=== PATIENT | male | born 1960 | race Caucasian/White ===

== ENCOUNTER 2018-08-16 13:33 | Inpatient (IN) | payer OTHER ==
[2018-08-16] MEDS ORDERED: FENTAnyl 50 MCG/ML VIAL IV ×3 (16:00→20:30)
[2018-08-16] MEDS ORDERED: ALBUTEROL 0.083% (NEB) 2.5 MG/3 ML AMP HHN (16:00)
[2018-08-16] MEDS ORDERED: DIPHENHYDRAMINE 50 MG INJ IV ×3 (16:00→20:30)
[2018-08-16] MEDS ORDERED: METOCLOPRAMIDE 10 MG INJ IV ×2 (16:00→20:30)
[2018-08-16] MEDS ORDERED: ONDANSETRON 4 MG INJ IV ×2 (16:00→20:30)
[2018-08-16] MEDS ORDERED: HYDROmorphONE 1 MG/5 ML IV SYRINGE IV ×3 (16:00)
[2018-08-16] MEDS ORDERED: MEPERIDINE 25 MG INJ IV ×2 (16:00→20:30)
[2018-08-16] MEDS ORDERED: MIDAZOLAM 1 MG/ML 2 ML INJ (17:08)
[2018-08-16] MEDS: BUPIVACAINE 0.25% (MPF) 30 ML INJ (17:33)
[2018-08-16] MEDS: POLYMYXIN/BACITRACIN 1L IRRIG (17:33)
[2018-08-16] MEDS: LIDOCAINE 1% (STERILE-PAK) 30 ML INJ (18:05)
[2018-08-16] MEDS: BACITRACIN 50000 UNITS INJ (18:05)
[2018-08-16] MEDS: POLYMYXIN B 500000 UNIT INJ (18:05)
[2018-08-16] MEDS ORDERED: CEFAZOLIN 1 GM INJ (19:57)
[2018-08-16] MEDS ORDERED: LIDOCAINE 2% (SDV) 5 ML INJ (19:57)
[2018-08-16] MEDS ORDERED: ETOMIDATE 20 MG INJ (19:57)
[2018-08-16] MEDS ORDERED: ROPIVACAINE 0.5 % 30 ML VIAL (19:58)
[2018-08-16] MEDS ORDERED: ONDANSETRON 4 MG INJ (20:14)
[2018-08-16] MEDS ORDERED: METOCLOPRAMIDE 10 MG INJ (20:14)
[2018-08-16] MEDS ORDERED: DIPHENHYDRAMINE 50 MG INJ (20:27)
[2018-08-16] MEDS ORDERED: morphine (1 MG/ML) 10ML SYRINGE IV ×2 (20:30)
[2018-08-16] MEDS ORDERED: hydrALAzine 20 MG INJ IV (20:30)
[2018-08-16] MEDS ORDERED: NACL 0.9% 3 ML SYG IV (20:30)
[2018-08-16] MEDS ORDERED: ACETAMINOPHEN 325 MG TAB PO (20:30)
[2018-08-16] MEDS ORDERED: MIDAZOLAM 1 MG/ML 2 ML INJ IV (20:30)
[2018-08-16] MEDS: ONDANSETRON 4 MG INJ IV (20:38)
[2018-08-16] MEDS ORDERED: GLUCOSE GEL 15 GRAM TUBE PO ×2 (21:00)
[2018-08-16] MEDS ORDERED: GLUCAGON 1 MG INJ IM (21:00)
[2018-08-16] MEDS: INSULIN ASPART [NOVOLOG] 3 ML PEN SC (21:00)
[2018-08-16] MEDS ORDERED: DEXTROSE 50% 50 ML SYRINGE IV ×2 (21:00)
[2018-08-16] MEDS: FAMOTIDINE 20 MG TAB PO (21:00)
[2018-08-16] MEDS: CEFAZOLIN 2 GM/50 ML (PMX) 50 ML IVPB (21:00)
[2018-08-16] MEDS ORDERED: GLUCOSE GEL 15 GRAM TUBE BUCCAL (21:00)
[2018-08-16] MEDS ORDERED: HEPARIN 5,000 UNIT/0.5 ML VIAL (22:58)
[2018-08-16 22:59] LABS: ADD MAN DIFF? NO
[2018-08-16] MEDS: HEPARIN 5,000 UNIT/1 ML VIAL SC (22:59)
[2018-08-16 23:01] LABS: BASOPHILS % 0.4 % (0.0-2.0); EOSINOPHILS # 0.2 10^3/ul (0.0-0.5); EOSINOPHILS % 1.6 % (0.0-7.0); HEMATOCRIT 38.7 % (42.0-52.0); HEMOGLOBIN 12.7 g/dl (14.0-18.0); LYMPHOCYTES # 1.7 10^3/ul (0.8-2.9); LYMPHOCYTES % 15.4 % (15.0-51.0); MEAN CORPUSCULAR HEMOGLOBIN 28.9 pg (29.0-33.0); MEAN CORPUSCULAR HGB CONC 32.8 g/dl (32.0-37.0); MEAN CORPUSCULAR VOLUME 88.2 fl (82.0-101.0); MEAN PLATELET VOLUME 10.7 fl (7.4-10.4); MONOCYTE # 0.5 10^3/ul (0.3-0.9); MONOCYTES % 4.9 % (0.0-11.0); NEUTROPHIL # 8.4 10^3/ul (1.6-7.5); NEUTROPHILS % 77.2 % (39.0-77.0); PLATELET COUNT 137 10^3/UL (140-415); POSITIVE DIFF @See below; RED BLOOD COUNT 4.39 10^6/ul (4.70-6.10)
[2018-08-16 23:01] LABS: WHITE BLOOD COUNT 10.8 10^3/ul (4.8-10.8)
[2018-08-16 23:17] LABS: ALANINE AMINOTRANSFERASE 25 IU/L (13-69); ALBUMIN 3.9 g/dl (3.3-4.9); ALKALINE PHOSPHATASE 70 IU/L (42-121); ANION GAP 9 (5-13); ASPARTATE AMINO TRANSFERASE 17 IU/L (15-46); BILIRUBIN,INDIRECT 0.5 mg/dl (0-1.1); BILIRUBIN,TOTAL 0.5 mg/dl (0.2-1.3); BLOOD UREA NITROGEN 10 mg/dl (7-20); CALCIUM 8.9 mg/dl (8.4-10.2); CARBON DIOXIDE 27 mmol/L (21-31); CHLORIDE 103 mmol/L (97-110); CREATININE 0.72 mg/dl (0.61-1.24); Estimated GFR > 60 mL/min (>60); GLUCOSE 160 mg/dl (70-220); POTASSIUM 4.2 mmol/L (3.5-5.1); SODIUM 139 mmol/L (135-144); TOTAL PROTEIN 6.5 g/dl (6.1-8.1)
[2018-08-17] MEDS: HYDROmorphONE 0.5 MG/0.5 ML SYG IV (00:46)
[2018-08-17] MEDS: ACCU-CHEK XX (02:00)
[2018-08-17] MEDS: HYDROmorphONE 1 MG/ML SYG IV ×2 (02:04→06:05)
[2018-08-17] MEDS ORDERED: HEPARIN 5,000 UNIT/0.5 ML VIAL (04:32)
[2018-08-17] MEDS: CEFAZOLIN 2 GM/50 ML (PMX) 50 ML IVPB (04:54)
[2018-08-17] MEDS: HEPARIN 5,000 UNIT/1 ML VIAL SC (04:55)
[2018-08-17 06:00] LABS: ADD MAN DIFF? NO
[2018-08-17 06:05] LABS: WHITE BLOOD COUNT 14.8 10^3/ul (4.8-10.8)
[2018-08-17 06:05] LABS: BASOPHIL # 0.1 10^3/ul (0.0-0.1); BASOPHILS % 0.3 % (0.0-2.0); EOSINOPHILS # 0.1 10^3/ul (0.0-0.5); EOSINOPHILS % 0.4 % (0.0-7.0); HEMATOCRIT 39.8 % (42.0-52.0); HEMOGLOBIN 12.8 g/dl (14.0-18.0); LYMPHOCYTES # 1.7 10^3/ul (0.8-2.9); LYMPHOCYTES % 11.5 % (15.0-51.0); MEAN CORPUSCULAR HEMOGLOBIN 28.2 pg (29.0-33.0); MEAN CORPUSCULAR HGB CONC 32.2 g/dl (32.0-37.0); MEAN CORPUSCULAR VOLUME 87.7 fl (82.0-101.0); MEAN PLATELET VOLUME 11.5 fl (7.4-10.4); MONOCYTE # 0.8 10^3/ul (0.3-0.9); MONOCYTES % 5.4 % (0.0-11.0); NEUTROPHIL # 12.1 10^3/ul (1.6-7.5); NEUTROPHILS % 81.9 % (39.0-77.0); PLATELET COUNT 170 10^3/UL (140-415); RED BLOOD COUNT 4.54 10^6/ul (4.70-6.10); RED CELL DISTRIBUTION WIDTH 14.1 % (11.5-14.5)
[2018-08-17 06:32] LABS: HEMOGLOBIN A1C 6.1 % (0-5.9)
[2018-08-17 06:51] LABS: ALANINE AMINOTRANSFERASE 30 IU/L (13-69); ALBUMIN 4.2 g/dl (3.3-4.9); ALKALINE PHOSPHATASE 77 IU/L (42-121); ANION GAP 9 (5-13); ASPARTATE AMINO TRANSFERASE 19 IU/L (15-46); BILIRUBIN,INDIRECT 0.7 mg/dl (0-1.1); BILIRUBIN,TOTAL 0.7 mg/dl (0.2-1.3); BLOOD UREA NITROGEN 10 mg/dl (7-20); CALCIUM 9.2 mg/dl (8.4-10.2); CARBON DIOXIDE 27 mmol/L (21-31); CHLORIDE 105 mmol/L (97-110); CHOL/HDL RATIO 3.2 RATIO; CHOLESTEROL 127 mg/dl (100-200); Estimated GFR > 60 mL/min (>60); GLUCOSE 140 mg/dl (70-220); HDL CHOLESTEROL 39 mg/dl (30-78); LDL CHOLESTEROL,CALCULATED 69 mg/dl; MAGNESIUM 1.8 mg/dl (1.7-2.5); SODIUM 141 mmol/L (135-144); TRIGLYCERIDES 95 mg/dl (0-149)
[2018-08-17] MEDS: INSULIN ASPART [NOVOLOG] 3 ML PEN SC (08:00)
[2018-08-17] MEDS: FAMOTIDINE 20 MG TAB PO (09:11)
[2018-08-17] MEDS: ASPIRIN 81 MG TAB PO (09:12)
[2018-08-17] MEDS: CLOPIDOGREL 75 MG TAB PO (09:12)
[2018-08-17] MEDS: SACUBITRIL/VALSARTAN (49mg-51mg) TABLET PO (09:12)
[2018-08-17] MEDS: OXYCODONE/ACETAMINOPHEN (10/325) TAB PO (09:56)
[2018-08-17] MEDS ORDERED: ATORVASTATIN 40 MG TAB PO (21:00)
[2018-08-17] MEDS ORDERED: INSULIN GLARGINE [LANtus] 3 ML PEN SC (21:00)
== END 2018-08-17 11:06 | disposition home or self-care (01) | DRG 478 ==
LOC: SDS 13:33 → 6WM 20:11
PROVIDERS: Family Medicine
PROC: 0QPL04Z Removal of Internal Fixation Device from Right Tarsal, Open Approach (ICD-10-PCS; principal; 2018-08-16 16:00)
PROC: 0QBL0ZX Excision of Right Tarsal, Open Approach, Diagnostic (ICD-10-PCS; 2018-08-16 16:00)
DX: T84.84XA Pain due to internal orthopedic prosthetic devices, implants and grafts, initial encounter (principal); M96.0 Pseudarthrosis after fusion or arthrodesis; Z96.698 Presence of other orthopedic joint implants; Z72.0 Tobacco use; M19.071 Primary osteoarthritis, right ankle and foot; I25.10 Atherosclerotic heart disease of native coronary artery without angina pectoris; E11.9 Type 2 diabetes mellitus without complications; Z95.810 Presence of automatic (implantable) cardiac defibrillator; I10 Essential (primary) hypertension
CPT/HCPCS: 73600; 80053; 80061; 82962; 83036; 83735; 84443; 85025; 87070; 87075; 87102; 87116; 88300; 88304

== ENCOUNTER 2019-05-16 14:51 | Inpatient (IN) | payer OTHER ==
[2019-05-16] MEDS ORDERED: ROCURONIUM 50 MG INJ (17:26)
[2019-05-16] MEDS ORDERED: PROPOFOL 100 ML ×3 (17:26→20:57)
[2019-05-16] MEDS ORDERED: ROPIVACAINE 0.5 % 30 ML VIAL (17:26)
[2019-05-16] MEDS ORDERED: DEXAMETHASONE 4 MG/ML 5 ML INJ (17:26)
[2019-05-16] MEDS ORDERED: PROPOFOL 20 ML (17:26)
[2019-05-16] MEDS ORDERED: MIDAZOLAM 1 MG/ML 2 ML INJ ×2 (17:26→17:52)
[2019-05-16] MEDS ORDERED: SUCCINYLCHOLINE CHLORIDE 100 MG/5 ML SYG IV (17:26)
[2019-05-16] MEDS ORDERED: CEFAZOLIN 1 GM INJ (17:26)
[2019-05-16] MEDS ORDERED: EPHEDrine 25 MG/5 ML SYG (17:26)
[2019-05-16] MEDS ORDERED: OXYCODONE/ACETAMINOPHEN (5/325) TAB PO (17:30)
[2019-05-16] MEDS ORDERED: DIPHENHYDRAMINE 50 MG INJ IV ×2 (17:30→23:00)
[2019-05-16] MEDS ORDERED: FENTAnyl 50 MCG/ML VIAL IV (17:30)
[2019-05-16] MEDS ORDERED: MEPERIDINE 25 MG INJ IV (17:30)
[2019-05-16] MEDS ORDERED: hydrALAzine 20 MG INJ IV (17:30)
[2019-05-16] MEDS ORDERED: LABETALOL HCL 20MG INJ IV (17:30)
[2019-05-16] MEDS ORDERED: HYDROmorphONE 1 MG/5 ML IV SYRINGE IV ×5 (17:30→23:30)
[2019-05-16] MEDS ORDERED: EPHEDrine 25 MG/5 ML SYG IV (17:30)
[2019-05-16] MEDS ORDERED: ONDANSETRON 4 MG INJ IV ×2 (17:30→23:30)
[2019-05-16] MEDS ORDERED: MIDAZOLAM 1 MG/ML 2 ML INJ IV (17:30)
[2019-05-16] MEDS ORDERED: ONDANSETRON 4 MG INJ ×2 (18:01→22:35)
[2019-05-16] MEDS: POLYMYXIN B 500000 UNIT INJ (19:48)
[2019-05-16] MEDS: BACITRACIN 50000 UNITS INJ IRR (19:49)
[2019-05-16] MEDS: CEFAZOLIN 2 GM/50 ML (PMX) 50 ML IVPB (22:00)
[2019-05-16] MEDS ORDERED: SUGAMMADEX SODIUM 200 MG/2 ML VIAL IV (22:35)
[2019-05-16] MEDS ORDERED: METOCLOPRAMIDE 10 MG INJ (22:35)
[2019-05-16] MEDS ORDERED: HYDROGEN PEROXIDE 118 ML (22:37)
[2019-05-16] MEDS ORDERED: HYDROCODONE/APAP (5/325) TAB PO (23:00)
[2019-05-16] MEDS ORDERED: IBUPROFEN 600 MG TAB PO (23:00)
[2019-05-16] MEDS: ONDANSETRON 4 MG INJ IV (23:23)
[2019-05-17] MEDS ORDERED: GLUCAGON 1 MG INJ IM (01:30)
[2019-05-17] MEDS ORDERED: GLUCOSE GEL 15 GRAM TUBE PO ×2 (01:30)
[2019-05-17] MEDS ORDERED: GLUCOSE GEL 15 GRAM TUBE BUCCAL (01:30)
[2019-05-17] MEDS ORDERED: DEXTROSE 50% 50 ML SYRINGE IV ×2 (01:30)
[2019-05-17] MEDS: ACCU-CHEK XX (02:00)
[2019-05-17] MEDS: morphine 2 MG INJ IV ×6 (04:21→23:11)
[2019-05-17 05:22] LABS: ADD MAN DIFF? NO
[2019-05-17 05:23] LABS: BASOPHILS % 0.1 % (0.0-2.0); HEMATOCRIT 37.4 % (42.0-52.0); HEMOGLOBIN 12.2 g/dl (14.0-18.0); LYMPHOCYTES % 6.8 % (15.0-51.0); MEAN CORPUSCULAR HEMOGLOBIN 28.8 pg (29.0-33.0); MEAN CORPUSCULAR HGB CONC 32.6 g/dl (32.0-37.0); MEAN CORPUSCULAR VOLUME 88.4 fl (82.0-101.0); MEAN PLATELET VOLUME 11.4 fl (7.4-10.4); MONOCYTE # 0.5 10^3/ul (0.3-0.9); MONOCYTES % 3.4 % (0.0-11.0); NEUTROPHIL # 12.9 10^3/ul (1.6-7.5); NEUTROPHILS % 89.3 % (39.0-77.0); PLATELET COUNT 161 10^3/UL (140-415); RED BLOOD COUNT 4.23 10^6/ul (4.70-6.10); RED CELL DISTRIBUTION WIDTH 14.7 % (11.5-14.5)
[2019-05-17 05:23] LABS: WHITE BLOOD COUNT 14.5 10^3/ul (4.8-10.8)
[2019-05-17] MEDS: CEFAZOLIN 2 GM/50 ML (PMX) 50 ML IVPB ×3 (05:38→22:10)
[2019-05-17] MEDS: HYDROCODONE/APAP (10/325) TAB PO (05:38)
[2019-05-17 05:54] LABS: HEMOGLOBIN A1C 6.6 % (0-5.9)
[2019-05-17 05:55] LABS: ANION GAP 7 (5-13); BLOOD UREA NITROGEN 12 mg/dl (7-20); CALCIUM 9.1 mg/dl (8.4-10.2); CARBON DIOXIDE 24 mmol/L (21-31); CHLORIDE 109 mmol/L (97-110); CHOL/HDL RATIO 4.5 RATIO; CHOLESTEROL 153 mg/dl (100-200); Estimated GFR > 60 mL/min (>60); GLUCOSE 158 mg/dl (70-220); HDL CHOLESTEROL 34 mg/dl (30-78); LDL CHOLESTEROL,CALCULATED 100 mg/dl; MAGNESIUM 1.9 mg/dl (1.7-2.5); POTASSIUM 4.1 mmol/L (3.5-5.1); SODIUM 140 mmol/L (135-144); TRIGLYCERIDES 96 mg/dl (0-149)
[2019-05-17] MEDS: INSULIN ASPART [NOVOLOG] 3 ML PEN SC ×4 (07:50→21:00)
[2019-05-17] MEDS: OXYCODONE/ACETAMINOPHEN (10/325) TAB PO ×5 (08:39→22:10)
[2019-05-17] MEDS: SACUBITRIL/VALSARTAN (24mg-26mg) TABLET PO ×2 (08:40→20:51)
[2019-05-17] MEDS: CLOPIDOGREL 75 MG TAB PO (08:41)
[2019-05-17] MEDS: ASCORBIC ACID 500 MG TAB PO (08:42)
[2019-05-17] MEDS: ZINC SULFATE 220 MG CAP PO (08:42)
[2019-05-17] MEDS: ASPIRIN 81 MG TAB PO (08:42)
[2019-05-17] MEDS ORDERED: [UNRECOGNIZED DRUG - OTHER] PO (09:00)
[2019-05-17] MEDS ORDERED: BUPROPION HCL 200 MG PO (09:00)
[2019-05-17] MEDS ORDERED: HUMALOG SQ (09:00)
[2019-05-17] MEDS ORDERED: VALSARTAN PO (09:00)
[2019-05-17] MEDS ORDERED: SACUBITRIL PO (09:00)
[2019-05-17] MEDS: SACUBITRIL/VALSARTAN (49mg-51mg) TABLET PO ×2 (10:50→20:51)
[2019-05-17] MEDS: BUPROPION (SR) 100 MG TAB PO ×2 (10:50→20:53)
[2019-05-17] MEDS: KETOROLAC 30 MG INJ IV ×2 (11:37→23:44)
[2019-05-17] MEDS: GABAPENTIN 400 MG CAP PO ×2 (12:53→20:52)
[2019-05-17] MEDS: ENOXAPARIN 40 MG/0.4 ML SYG SC (19:05)
[2019-05-17] MEDS: ATORVASTATIN 40 MG TAB PO (20:52)
[2019-05-17] MEDS: ZOLPIDEM 5 MG TAB PO (20:53)
[2019-05-17] MEDS: INSULIN GLARGINE [LANTus] (100 UNITS/ML) SYG SC (21:09)
[2019-05-18] MEDS ORDERED: ZOLPIDEM 5 MG TAB PO
[2019-05-18] MEDS: CYCLOBENZAPRINE 10 MG TAB PO ×2 (00:51→12:24)
[2019-05-18] MEDS: HYDROmorphONE 1 MG/ML SYG IV ×3 (00:51→06:33)
[2019-05-18] MEDS: ACCU-CHEK XX (01:34)
[2019-05-18] MEDS: OXYCODONE/ACETAMINOPHEN (10/325) TAB PO ×3 (03:03→17:43)
[2019-05-18 05:21] LABS: ADD MAN DIFF? NO
[2019-05-18 05:32] LABS: WHITE BLOOD COUNT 11.4 10^3/ul (4.8-10.8)
[2019-05-18 05:32] LABS: BASOPHIL # 0.1 10^3/ul (0.0-0.1); BASOPHILS % 0.4 % (0.0-2.0); EOSINOPHILS # 0.1 10^3/ul (0.0-0.5); EOSINOPHILS % 0.5 % (0.0-7.0); HEMATOCRIT 34.8 % (42.0-52.0); LYMPHOCYTES # 2.7 10^3/ul (0.8-2.9); LYMPHOCYTES % 23.6 % (15.0-51.0); MEAN CORPUSCULAR HEMOGLOBIN 28.7 pg (29.0-33.0); MEAN CORPUSCULAR HGB CONC 31.6 g/dl (32.0-37.0); MEAN CORPUSCULAR VOLUME 90.9 fl (82.0-101.0); MEAN PLATELET VOLUME 11.2 fl (7.4-10.4); MONOCYTE # 1.1 10^3/ul (0.3-0.9); MONOCYTES % 9.4 % (0.0-11.0); NEUTROPHIL # 7.5 10^3/ul (1.6-7.5); NEUTROPHILS % 65.7 % (39.0-77.0); PLATELET COUNT 146 10^3/UL (140-415); RED BLOOD COUNT 3.83 10^6/ul (4.70-6.10); RED CELL DISTRIBUTION WIDTH 14.8 % (11.5-14.5)
[2019-05-18 05:46] LABS: IRON 56 ug/dl (35-150)
[2019-05-18 05:55] LABS: ANION GAP 5 (5-13); BLOOD UREA NITROGEN 11 mg/dl (7-20); CALCIUM 8.9 mg/dl (8.4-10.2); CARBON DIOXIDE 27 mmol/L (21-31); CHLORIDE 107 mmol/L (97-110); CREATININE 0.66 mg/dl (0.61-1.24); Estimated GFR > 60 mL/min (>60); GLUCOSE 105 mg/dl (70-220); POTASSIUM 3.8 mmol/L (3.5-5.1); SODIUM 139 mmol/L (135-144)
[2019-05-18 05:57] LABS: % IRON SATURATION 18 % SAT (22-52); TOTAL IRON BINDING CAPACITY 313 ug/dl (241-421)
[2019-05-18 06:22] LABS: HEPATITIS B SURFACE ANTIGEN NEGATIVE (NEGATIVE)
[2019-05-18] MEDS: CEFAZOLIN 2 GM/50 ML (PMX) 50 ML IVPB ×3 (06:34→22:22)
[2019-05-18 06:39] LABS: HEPATITIS C VIRAL ANTIBODY NEGATIVE (NEGATIVE)
[2019-05-18] MEDS: INSULIN ASPART [NOVOLOG] 3 ML PEN SC ×4 (07:50→21:00)
[2019-05-18] MEDS: morphine 2 MG INJ IV ×2 (08:44→11:48)
[2019-05-18] MEDS: BUPROPION (SR) 100 MG TAB PO ×2 (09:10→21:34)
[2019-05-18] MEDS: SACUBITRIL/VALSARTAN (49mg-51mg) TABLET PO ×2 (09:10→21:34)
[2019-05-18] MEDS: ASPIRIN 81 MG TAB PO (09:10)
[2019-05-18] MEDS: GABAPENTIN 100 MG CAP PO ×2 (09:10→11:45)
[2019-05-18] MEDS: GABAPENTIN 400 MG CAP PO (09:10)
[2019-05-18] MEDS: CLOPIDOGREL 75 MG TAB PO (09:10)
[2019-05-18] MEDS: ZINC SULFATE 220 MG CAP PO (09:10)
[2019-05-18] MEDS: SACUBITRIL/VALSARTAN (24mg-26mg) TABLET PO ×2 (09:11→21:44)
[2019-05-18] MEDS: FERROUS SULFATE (EC) 325 MG TAB PO (09:20)
[2019-05-18] MEDS: HYDROmorphONE 2 MG/ML SYG IV ×7 (09:29→23:52)
[2019-05-18] MEDS ORDERED: GABAPENTIN 300 MG CAP PO (09:30)
[2019-05-18] MEDS ORDERED: BISACODYL (EC) 5 MG TAB PO (09:30)
[2019-05-18] MEDS: ASCORBIC ACID 500 MG TAB PO (09:30)
[2019-05-18] MEDS: SPIRONOLACTONE 25 MG TAB PO (09:37)
[2019-05-18] MEDS: GABAPENTIN 300 MG CAP PO ×2 (14:14→21:35)
[2019-05-18 15:12] LABS: RAPID PLASMA REAGIN NONREACTIVE (NR)
[2019-05-18] MEDS: ENOXAPARIN 40 MG/0.4 ML SYG SC (18:41)
[2019-05-18] MEDS: INSULIN GLARGINE [LANTus] (100 UNITS/ML) SYG SC (21:31)
[2019-05-18] MEDS: ATORVASTATIN 40 MG TAB PO (21:33)
[2019-05-19] MEDS: OXYCODONE/ACETAMINOPHEN (10/325) TAB PO ×3 (00:41→11:36)
[2019-05-19] MEDS: ACCU-CHEK XX (02:00)
[2019-05-19] MEDS: HYDROmorphONE 2 MG/ML SYG IV ×3 (03:18→08:23)
[2019-05-19] MEDS: INSULIN ASPART [NOVOLOG] 3 ML PEN SC (07:50)
[2019-05-19 08:19] LABS: ADD MAN DIFF? NO
[2019-05-19 08:25] LABS: BASOPHIL # 0.1 10^3/ul (0.0-0.1); BASOPHILS % 0.5 % (0.0-2.0); EOSINOPHILS # 0.3 10^3/ul (0.0-0.5); EOSINOPHILS % 2.5 % (0.0-7.0); HEMATOCRIT 33.6 % (42.0-52.0); HEMOGLOBIN 10.8 g/dl (14.0-18.0); LYMPHOCYTES # 2.1 10^3/ul (0.8-2.9); LYMPHOCYTES % 20.7 % (15.0-51.0); MEAN CORPUSCULAR HEMOGLOBIN 29.4 pg (29.0-33.0); MEAN CORPUSCULAR HGB CONC 32.1 g/dl (32.0-37.0); MEAN CORPUSCULAR VOLUME 91.6 fl (82.0-101.0); MEAN PLATELET VOLUME 11.2 fl (7.4-10.4); MONOCYTE # 1.1 10^3/ul (0.3-0.9); MONOCYTES % 10.6 % (0.0-11.0); NEUTROPHIL # 6.7 10^3/ul (1.6-7.5); NEUTROPHILS % 65.4 % (39.0-77.0); PLATELET COUNT 139 10^3/UL (140-415); POSITIVE DIFF @See below; RED BLOOD COUNT 3.67 10^6/ul (4.70-6.10); RED CELL DISTRIBUTION WIDTH 14.6 % (11.5-14.5)
[2019-05-19 08:25] LABS: WHITE BLOOD COUNT 10.2 10^3/ul (4.8-10.8)
[2019-05-19] MEDS: ZINC SULFATE 220 MG CAP PO (08:54)
[2019-05-19] MEDS: SACUBITRIL/VALSARTAN (49mg-51mg) TABLET PO (08:55)
[2019-05-19] MEDS: SACUBITRIL/VALSARTAN (24mg-26mg) TABLET PO (08:55)
[2019-05-19] MEDS: FERROUS SULFATE (EC) 325 MG TAB PO (08:56)
[2019-05-19] MEDS: BUPROPION (SR) 100 MG TAB PO (08:56)
[2019-05-19] MEDS: ASCORBIC ACID 500 MG TAB PO (08:56)
[2019-05-19] MEDS: CLOPIDOGREL 75 MG TAB PO (08:57)
[2019-05-19] MEDS: GABAPENTIN 300 MG CAP PO ×2 (08:57→12:39)
[2019-05-19 08:58] LABS: ANION GAP 6 (5-13); BLOOD UREA NITROGEN 15 mg/dl (7-20); CALCIUM 8.9 mg/dl (8.4-10.2); CARBON DIOXIDE 28 mmol/L (21-31); CHLORIDE 104 mmol/L (97-110); CREATININE 0.79 mg/dl (0.61-1.24); Estimated GFR > 60 mL/min (>60); GLUCOSE 95 mg/dl (70-220); POTASSIUM 3.8 mmol/L (3.5-5.1); SODIUM 138 mmol/L (135-144)
[2019-05-19] MEDS: SPIRONOLACTONE 25 MG TAB PO (08:58)
[2019-05-19] MEDS: ASPIRIN 81 MG TAB PO (08:58)
[2019-05-19] MEDS: CEPHALEXIN 500 MG CAP PO (12:39)
[2019-05-19] MEDS: ENOXAPARIN 40 MG/0.4 ML SYG SC (12:40)
== END 2019-05-19 13:01 | disposition home or self-care (01) | DRG 493 ==
LOC: REC 14:51 → MS1 05-17 02:36
PROVIDERS: Podiatrist Foot & Ankle Surgery
PROC: 0QBJ0ZZ Excision of Right Fibula, Open Approach (ICD-10-PCS; principal; 2019-05-16 17:00)
PROC: 0SBH0ZZ Excision of Right Tarsal Joint, Open Approach (ICD-10-PCS; 2019-05-16 17:00)
PROC: 0SBH0ZZ Excision of Right Tarsal Joint, Open Approach (ICD-10-PCS; 2019-05-16 17:00)
PROC: 0SBH0ZZ Excision of Right Tarsal Joint, Open Approach (ICD-10-PCS; 2019-05-16 17:00)
PROC: 0SGH05Z Fusion of Right Tarsal Joint with External Fixation Device, Open Approach (ICD-10-PCS; 2019-05-16 17:00)
PROC: 0SGH0KZ Fusion of Right Tarsal Joint with Nonautologous Tissue Substitute, Open Approach (ICD-10-PCS; 2019-05-16 17:00)
PROC: 0SGH0KZ Fusion of Right Tarsal Joint with Nonautologous Tissue Substitute, Open Approach (ICD-10-PCS; 2019-05-16 17:00)
PROC: 0SGH0KZ Fusion of Right Tarsal Joint with Nonautologous Tissue Substitute, Open Approach (ICD-10-PCS; 2019-05-16 17:00)
DX: M96.0 Pseudarthrosis after fusion or arthrodesis (principal); I42.9 Cardiomyopathy, unspecified; I50.22 Chronic systolic (congestive) heart failure; Y83.8 Other surgical procedures as the cause of abnormal reaction of the patient, or of later complication, without mention of misadventure at the time of the procedure; M19.071 Primary osteoarthritis, right ankle and foot; I25.10 Atherosclerotic heart disease of native coronary artery without angina pectoris; Z95.5 Presence of coronary angioplasty implant and graft; Z95.810 Presence of automatic (implantable) cardiac defibrillator; E11.9 Type 2 diabetes mellitus without complications; Z79.4 Long term (current) use of insulin; Z87.891 Personal history of nicotine dependence; I11.0 Hypertensive heart disease with heart failure; H91.90 Unspecified hearing loss, unspecified ear; G89.4 Chronic pain syndrome; E11.42 Type 2 diabetes mellitus with diabetic polyneuropathy; E66.9 Obesity, unspecified; Z68.37 Body mass index [BMI] 37.0-37.9, adult
CPT/HCPCS: 73610-RT; 80048; 80061; 82962; 83036; 83540; 83735; 84443; 85025; 86592; 86803; 87070; 87075; 87102; 87340; 97162; 97530